=== PATIENT | female | born 1955 | race Caucasian/White ===

== ENCOUNTER → 2016-12-08 | Outpatient (CLI) | payer MEDICARE, OTHER ==
--- NOTE | 2016-12-08 08:59 | RAD ---
EXAM: DIGITAL SCREEN BILAT W/CAD. HISTORY: Screening. COMPARISON: 11/07/2015 and 10/29/2014. FINDINGS: Digital mammography was performed. Computer-aided detection (CAD) was utilized. The breast parenchyma is primarily fatty (tissue density A). No dominant suspicious mass, suspicious microcalcifications, or architectural distortion is identified. IMPRESSION: No mammographic evidence of malignancy. BI-RADS CATEGORY: 1 NEGATIVE RECOMMENDED FOLLOW-UP: 12M 12 MONTH FOLLOW-UP PQRS compliance statement: Patient information was entered into a reminder system with a target due date for the next mammogram. Mammography is a sensitive method for finding small breast cancers, but it does not detect them all and is not a substitute for careful clinical examination. A negative mammogram does not negate a clinically suspicious finding and should not result in delay in biopsying a clinically suspicious abnormality. "Our facility is accredited by the [employer] Mammography Program."
== END | disposition home or self-care (01) ==
LOC: MAMMO 08:27
PROVIDERS: ATTEND Family Medicine
DX: Z12.31 Encounter for screening mammogram for malignant neoplasm of breast (principal)
CPT/HCPCS: G0202; 77067

== ENCOUNTER 2017-01-09 18:28 | Emergency (ER) | payer MEDICARE, OTHER ==
[~2017-01-09] VITALS: Ht 162.6 cm; Wt 104.3 kg
--- NOTE | 2017-01-09 20:55 | PHYS DOC ---
Past Medical History Past Medical History: Diabetes-Type II, High Cholesterol, Hypertension Additional Past Medical Histor: MD, Guozmdy-Jbmve-Ljjny disorder, "valve problem" Past Surgical History: Appendectomy, Hysterectomy, Knee Replacement Additional Past Surgical Histo: right knee, carpal tunnel Alcohol Use: None Drug Use: None Adult General Chief Complaint Chief Complaint: MECHANICAL FALL HPI HPI Patient is a 61 year old female who presents with complaint of left foot and ankle pain. Patient states that she was walking down steps yesterday and lost her footing, causing her to fall back in her left foot becoming pinned back under her. Patient states that she did not hit her head or lose consciousness as a result of the fall. The fall took place at approximately 10:30 PM last night. Patient states that she has been ambulating with use of a cane. Patient states that she is having worsening pain to her left ankle and foot and states that she has had difficulty lifting her foot up since the fall. Patient rates pain currently 6 out of 10. Patient has not taken any medications to help with symptoms. Patient states that she has worsening pain when she tries to lift her foot. Review of Systems Review of Systems Constitutional: Denies fever or chills [] Eyes: Denies change in visual acuity, redness, or eye pain [] HENT: Denies nasal congestion or sore throat [] Musculoskeletal: Left ankle and foot pain with swelling, bruising [] Integument: Denies rash or skin lesions [] Neurologic: Denies headache, focal weakness or sensory changes [] Allergies Allergies Allergies Coded Allergies Type Severity Reaction Last Updated Verified adhesive Allergy Intermediate 01/09/17 Yes morphine Adverse Reaction Intermediate hallucination 01/09/17 Yes Physical Exam Physical Exam Constitutional: Alert, afebrile, no acute distress. [] HENT: Normocephalic, atraumatic, bilateral external ears normal, oropharynx moist, no oral exudates, nose normal. [] Eyes: PERRLA, EOMI, conjunctiva normal, no discharge. [] Extremities: Mild to moderate soft tissue swelling along left lateral malleolus , tenderness palpation over left lateral malleolus and on left heel, range of motion limited secondary to pain. [] Neurologic: Alert and oriented X 3, normal motor function, normal sensory function, no focal deficits noted. [] Current Patient Data Vital Signs Vital Signs Date Time Temp Pulse Resp B/P (MAP) Pulse Ox O2 Delivery O2 Flow Rate FiO2 01/09/17 19:45 98.6 87 18 96 Room Air 98.6 EKG EKG Not performed [] Radiology/Procedures Radiology/Procedures 3 view left ankle x-rays interpreted by me: No fractures, normal alignment, mild to moderate soft tissue swelling 3 view right foot x-rays interpreted by me: No fractures, normal alignment, no soft tissue swelling [] Course & Med Decision Making Course & Med Decision Making Pertinent Labs and Imaging studies reviewed. (See chart for details) The patient was placed in an Inocencio wrap and air cast by the emergency department nurse. My evaluation post application showed normal capillary refill in all 5 digits and normal sensation. Advised use of cane or a roller walker to assist with ambulation at home. Patient states that she has naproxen at home to use for pain. Advised elevation and cryotherapy for additional treatment. Advised follow-up in 3-5 days a primary doctor and referred to Dr. Graves of orthopedic surgery for follow-up in one to 2 weeks if symptoms are not improving. Recommended return to the emergency department for any worsening symptoms. Patient voiced understanding and in agreement with treatment plan. Dragon Disclaimer Dragon Disclaimer This electronic medical record was generated, in whole or in part, using a voice recognition dictation system. Departure Departure Impression: Primary Impression: Ankle sprain Additional Impression: Foot contusion Disposition: 01 HOME, SELF-CARE Condition: IMPROVED Referrals: EMILIANO BEVERLY MD (PCP) MARGARET GRAVES MD Patient Instructions: Ankle Sprain, Foot Contusion Additional Instructions: Follow-up with your primary doctor in the next 3-5 days and follow-up with Dr. Graves of orthopedic surgery in 1-2 weeks. Return to emergency department for any worsening symptoms. Problem Qualifiers Primary Impression: Ankle sprain Encounter type: initial encounter Involved ligament of ankle: unspecified ligament Laterality: left Qualified Codes: S93.402A - Sprain of unspecified ligament of left ankle, initial encounter Additional Impression: Foot contusion Encounter type: initial encounter Laterality: left Qualified Codes: S90.32XA - Contusion of left foot, initial encounter LESA MARC MD January 09, 2017 20:55
[2017-01-09 21:30] VITALS: BP 132/73
--- NOTE | 2017-01-10 07:01 | RAD ---
Indication: Left foot and ankle injury. Time of exam 2103 hours. 3 views of the left ankle were obtained. Moderate soft tissue swelling is present. There is some questionable mild widening of the ankle mortise posteriorly on the lateral view. No fracture is seen. No definite dislocation is identified. However, the talus appears to be slightly anteriorly subluxed in relation to the articular surface of the distal tibia. There is a large plantar calcaneal spur. Impression: Soft tissue swelling and questionable mild anterior subluxation of the talus in relation to the distal tibia. No fracture is seen.
--- NOTE | 2017-01-10 07:02 | RAD ---
Indication: Left foot injury. Time of exam 2103 hours. The metatarsals are intact. The phalanges are intact. Midfoot and hindfoot are unremarkable apart from a large plantar calcaneal spur. Tibiotalar alignment appears appropriate on the lateral view of the foot in comparison to the ankle radiograph. Impression: No acute abnormality is detected.
== END 2017-01-09 21:45 | disposition home or self-care (01) ==
LOC: ER 19:14
DX: S93.402A Sprain of unspecified ligament of left ankle, initial encounter (principal); S90.32XA Contusion of left foot, initial encounter; E11.9 Type 2 diabetes mellitus without complications; E78.00 Pure hypercholesterolemia, unspecified; I10 Essential (primary) hypertension; Z88.5 Allergy status to narcotic agent; Z91.048 Other nonmedicinal substance allergy status; W10.9XXA Fall (on) (from) unspecified stairs and steps, initial encounter; Y93.89 Activity, other specified; Y92.89 Other specified places as the place of occurrence of the external cause; Y99.8 Other external cause status
CPT/HCPCS: 73610; 73630; 99284

== ENCOUNTER → 2017-12-09 | Outpatient (CLI) | payer MEDICARE, OTHER | END | disposition home or self-care (01) | LOC: MAMMO 08:08 | DX: Z12.31 Encounter for screening mammogram for malignant neoplasm of breast (principal) | CPT/HCPCS: 77063; 77067 ==

== ENCOUNTER → 2018-10-26 | Outpatient (CLI) | payer MEDICARE, OTHER ==
--- NOTE | 2018-10-26 12:14 | RAD ---
Bilateral lower extremity venous ultrasound, 10/26/2018: History: Leg swelling and pain, left greater than right Duplex evaluation of the deep veins in the lower extremities was performed including grayscale, color-flow and spectral Doppler analysis. The right common femoral, superficial femoral and popliteal veins are patent. Patent posterior tibial and peroneal veins are present in the right calf. On the left there is occlusive thrombus in the left superficial femoral and popliteal veins. There is extension of a small nonocclusive thrombus into the left common femoral vein. Nonocclusive thrombi are noted in the posterior tibial and peroneal veins in the left calf. IMPRESSION: 1. No evidence of deep vein thrombosis in the right lower extremity. 2. Extensive deep vein thrombosis in the left lower extremity as described above. Note: The findings were given to this patient's provider at the time of the exam by the rad technologist. Electronically signed by: Alfonso Forbes MD (10/26/2018 12:11 PM) [facility]
--- NOTE | 2018-10-26 15:17 | RAD ---
Bilateral lower extremity venous insufficiency ultrasound exam, 10/26/2018: HISTORY: Leg swelling and pain Duplex evaluation of the saphenous veins in both lower extremities was performed including grayscale, color-flow and spectral Doppler analysis. The right greater saphenous vein is patent and shows no evidence of reflux. An anterior accessory saphenous vein is identified without significant reflux. There is reflux at the left saphenofemoral junction. The greater saphenous vein measures 9.2 mm at that level and demonstrates a reflux time of 1.7 seconds. Significant reflux was not identified in the remainder of the greater saphenous vein in the left thigh or left lower leg. There is an anterior sensory saphenous vein on the left which does not demonstrate significant reflux. The lesser saphenous veins in both calves are patent and do not demonstrate significant reflux. IMPRESSION: Reflux was identified in the left greater saphenous vein at the saphenofemoral junction as described above. Electronically signed by: Alfonso Forbes MD (10/26/2018 3:14 PM) [facility]
--- NOTE | 2018-10-26 16:29 | CARD ---
MR#: [id number] Date of Study: 10/26/2018 Ordering Physician: MICHAELA WRIGHT, Referring Physician: MICHAELA WRIGHT, Tech: Phyllis Sarmiento APPROVED REPORT EXAM: Two-dimensional and M-mode echocardiogram with Doppler and color Doppler. Other Information Quality : AverageHR: 66bpm INDICATION Murmur 2D DIMENSIONS RVDd3.2 (2.9-3.5cm)Left Atrium(2D)3.2 (1.6-4.0cm) IVSd1.0 (0.7-1.1cm)Aortic Root(2D)3.0 (2.0-3.7cm) LVDd4.7 (3.9-5.9cm)LVOT Diameter2.2 (1.8-2.4cm) PWd1.0 (0.7-1.1cm)LVDs3.0 (2.5-4.0cm) FS (%) 37.0 %SV69.7 ml Aortic Valve AoV Peak Elijah.189.0cm/sAoV VTI35.8cm AO Peak GR.14.3mmHgLVOT Peak Elijah.122.5cm/s LVOT VTI 24.24cmAO Mean GR.6mmHg SELENE (VMAX)1.46uc6BYO (VTI)2.56cm2 AI P 1/2 Vgpv127sm Mitral Valve MV E Ddmdgjpy03.0cm/sMV DECEL JKFA075sr MV A Qqkbumam33.4cm/sMV KNU385ul E/A Ratio0.7MVA (PHT)2.10cm2 TDI E/Lateral E'5.9E/Medial E'7.6 Pulmonary Valve PV Peak Gvqlucix299.8cm/sPV Peak Grad.12mmHg Tricuspid Valve TR P. Xdweyijy494zi/sRAP WGQILJYT2yvXs TR Peak Gr.59wiEbXXZJ69ucWi Pulmonary Vein S1 Guyrdinu72.6cm/sD2 Dfnocbsa33.6cm/s PVa siercino927ypnd LEFT VENTRICLE The left ventricle is normal size. There is normal left ventricular wall thickness. The left ventricu lar systolic function is normal and the ejection fraction is within normal range. The Ejection Fracti on is 50-55%. There is normal LV segmental wall motion. Transmitral Doppler flow pattern is Grade I-a bnormal relaxation pattern. RIGHT VENTRICLE The right ventricle is borderline dilated. There is normal right ventricular wall thickness. The righ t ventricular systolic function is normal. ATRIA The left atrium size is normal. The right atrium size is normal. The interatrial septum is intact wit h no evidence for an atrial septal defect or patent foramen ovale as noted on 2-D or Doppler imaging. AORTIC VALVE The aortic valve is thickened but opens well. Doppler and Color Flow revealed mild aortic regurgitati on. There is no significant aortic valvular stenosis. MITRAL VALVE The mitral valve is normal in structure and function. There is no evidence of mitral valve prolapse. There is no mitral valve stenosis. Doppler and Color-flow revealed trace mitral regurgitation. TRICUSPID VALVE The tricuspid valve is normal in structure and function. Doppler and Color Flow revealed trace tricus pid regurgitation. There is no tricuspid valve stenosis. PULMONIC VALVE The pulmonic valve is not well visualized. Doppler and Color Flow revealed trace pulmonic valvular re gurgitation. GREAT VESSELS The aortic root is normal in size. The IVC is normal in size and collapses >50% with inspiration. PERICARDIAL EFFUSION There is no evidence of significant pericardial effusion. Critical Notification Critical Value: No <Conclusion> The left ventricle is normal size. The left ventricular systolic function is normal and the ejection fraction is within normal range. The Ejection Fraction is 50-55%. There is no significant aortic valvular stenosis. Doppler and Color Flow revealed mild aortic regurgitation. Doppler and Color-flow revealed trace mitral regurgitation. Doppler and Color Flow revealed trace tricuspid regurgitation. Signed by : Michaela Wright MD Electronically Approved : 10/26/2018 16:29:36
== END | disposition home or self-care (01) ==
LOC: ECHO 07:58
PROVIDERS: ATTEND Internal Medicine Cardiovascular Disease
DX: I82.412 Acute embolism and thrombosis of left femoral vein (principal); I82.432 Acute embolism and thrombosis of left popliteal vein; I35.1 Nonrheumatic aortic (valve) insufficiency; M79.604 Pain in right leg; R22.41 Localized swelling, mass and lump, right lower limb
CPT/HCPCS: 93306; 93970

== ENCOUNTER → 2018-12-12 | Outpatient (CLI) | payer MEDICARE ==
--- NOTE | 2018-12-12 14:32 | RAD ---
DATE: 12/12/2018 EXAM: MAMMO JAY JAY SCREENING BILATERAL HISTORY: Screening evaluation COMPARISON: 12/09/2017, 12/08/2016 mammographic exams This study was interpreted with the benefit of Computerized Aided Detection (CAD). Breast Density: FATTY The breast parenchyma is primarily fatty replaced. Breast parenchyma level density A. FINDINGS: No suspicious masses, calcification, or distortion. IMPRESSION: No suspicious finding. BI-RADS CATEGORY: 1 NEGATIVE RECOMMENDED FOLLOW-UP: 12M 12 MONTH FOLLOW-UP PQRS compliance statement: Patient information was entered into a reminder system with a target due date in one year for the next mammogram. Mammography is a sensitive method for finding small breast cancers, but it does not detect them all and is not a substitute for careful clinical examination. A negative mammogram does not negate a clinically suspicious finding and should not result in delay in biopsying a clinically suspicious abnormality. "Our facility is accredited by the [employer] Mammography Program."
== END | disposition home or self-care (01) ==
LOC: MAMMO 07:52
PROVIDERS: ATTEND Family Medicine
DX: Z12.31 Encounter for screening mammogram for malignant neoplasm of breast (principal)
CPT/HCPCS: 77063; 77067

== ENCOUNTER → 2019-05-08 | Outpatient (CLI) | payer MEDICARE ==
--- NOTE | 2019-05-10 13:07 | RAD ---
MR#: [id number] Date of Study: 05/08/2019 Ordering Physician: IMCHAELA BENITEZ, Referring Physician: MICHAELA BENITEZ, Tech: Domenic Land, JOSEPH, RDMS, RVT, RDCS, RTR APPROVED REPORT Patient Location: OUT-PATIENT Indications Rest Pain:Bilaterally VELOCITY AND DOPPLER WAVEFORM ANALYSIS RIGHT cm/secWaveformSeverity LEFT cm/secWaveform Severity dCFA 184.0TriphasicdCFA 176.0Triphasic Prof Fem Art. 93.0TriphasicProf Fem Art. 80.0Triphasic Fem Art Prox. 125.0TriphasicFem Art Prox. 128.0Triphasic Fem Art Mid. 112.0TriphasicFem Art Mid. 116.0Triphasic Fem Art Dist. 104.0TriphasicFem Art Dist. 87.0Triphasic Pop Art(Fossa) 45.0TriphasicPop Art(AK) 51.0Triphasic GARAGE MANAGER Prox. 72.0BiphasicPTA Prox. 76.0Biphasic GARAGE MANAGER Dist. 78.0BiphasicPTA Dist. 76.0Biphasic Per Art Mid. 74.0BiphasicPer Art Mid. HILARY Prox. 84.0BiphasicATA Prox. 63.0Biphasic DPA 29BiphasicDPA 40Biphasic Findings Grayscale images of the lower extremity arterial vessels reveal mild diffuse disease. Spectral waveforms are mostly triphasic and biphasic throughout the lower extremity arterial course. The ankle vessels demonstrate moderate diffuse disease with monophasic waveforms in velocity suggesti ve of diffuse disease. There is three-vessel runoff on the right side and two-vessel runoff on the left side. No focal above -knee disease is identified bilaterally. Critical Notification Critical Value: No <Conclusion> 1. No significant large vessel disease noted in the bilateral lower extremity arterial vessels. 2. Likely small vessel disease of the level of the ankle and below. Signed by : Jose G Crowder, Electronically Approved : 05/08/2019 17:01:00
--- NOTE | 2019-05-10 13:07 | RAD ---
MR#: [id number] Date of Study: 05/08/2019 Ordering Physician: MICHAELA BENITEZ, Referring Physician: MICHAELA BENITEZ, Tech: Domenic Land MBA, RDMS, RVT, RDCS, RTR APPROVED REPORT Bilateral Lower Extremity Venous Study for DVT Patient Location: OUT-PATIENT Indications Lower Extremity Pain: Bilateral f/u lt leg dvt Vein Imaging (Right) CFV (R): Compressible SFJ (R): Compressible FEM (R): Compressible POP (R): Compressible DFV (R): Spontaneous PTV (R): Spontaneous GSV (R): Spontaneous Peroneals (R): Spontaneous Vein Imaging (Left) CFV (L): Compressible SFJ (L): Compressible FEM (L): Compressible POP (L): Compressible DFV (L): Compressible PTV (L): Spontaneous GSV (L): Spontaneous Peroneals (L): Spontaneous Doppler Evaluation (Right) CFV (R): Spontaneous POP (R):Spontaneous Doppler Evaluation (Left) CFV (L):Spontaneous POP (L):Spontaneous Findings Technically difficult study Grossly no above knee DVT noted. Grossly normal respiratory variation noted. The below knee vessels are not well visualized Critical Notification Critical Value: No <Conclusion> Technically difficult study. No clear above knee disease noted. Signed by : Jose G Crowder, Electronically Approved : 05/08/2019 16:45:37
== END | disposition home or self-care (01) ==
LOC: US 14:40
PROVIDERS: ATTEND Internal Medicine Cardiovascular Disease
DX: I82.403 Acute embolism and thrombosis of unspecified deep veins of lower extremity, bilateral (principal); I73.9 Peripheral vascular disease, unspecified; M79.604 Pain in right leg; M79.605 Pain in left leg
CPT/HCPCS: 93925; 93970

== ENCOUNTER → 2020-01-24 | Outpatient (CLI) | payer MEDICARE ==
--- NOTE | 2020-01-24 11:08 | RAD ---
MR#: [id number] Date of Study: 01/24/2020 Ordering Physician: MICHAELA BENITEZ, Referring Physician: MICHAELA BENITEZ, Tech: Phyllis Vance, KARLIE, RVT, RTR APPROVED REPORT Bilateral Lower Extremity Venous Study for DVT Patient Location: OUT-PATIENT Indications Lower Extremity Edema: Bilateral Findings The bilateral lower extremity deep veins were evaluated for thrombus with color Doppler, spectral and grayscale images. On the right the grayscale images of the common femoral, superficial femoral and popliteal veins do n ot demonstrate any evidence of thrombus and these veins appear to be compressible. The below-knee vei ns were not well visualized but grossly appear to be compressible. Spectral imaging and color Doppler do not reveal any evidence of obstruction to flow with normal respirophasic variation above the knee . Below the knee there is spontaneous flow noted. On the left, the grayscale images of the common femoral, superficial femoral and popliteal veins do n ot demonstrate any evidence of thrombus and these veins appear to be compressible. The below-knee vei ns again were not well visualized but grossly appear to be compressible. Spectral imaging and color D oppler do not reveal any evidence of obstruction to flow with normal respirophasic variation above th e knee. The below-knee veins demonstrate spontaneous flow. Critical Notification Critical Value: No <Conclusion> 1. No evidence of BLE DVT. Signed by : Jose G Crowder, Electronically Approved : 01/24/2020 11:07:38
== END | disposition home or self-care (01) ==
LOC: US 09:35
PROVIDERS: ATTEND Internal Medicine Cardiovascular Disease
DX: M79.89 Other specified soft tissue disorders (principal)
CPT/HCPCS: 93970

== ENCOUNTER → 2020-01-31 | Outpatient (CLI) | payer MEDICARE ==
--- NOTE | 2020-02-01 08:21 | RAD ---
INDICATION: 64 years of age asymptomatic female patient presents for screening mammography. TECHNIQUE: Full field craniocaudal and mediolateral oblique images of both breasts were obtained using digital technique with tomosynthesis and also analyzed with computer-aided detection software. COMPARISON: Prior mammographic imaging dating back to 12/09/2017. BREAST COMPOSITION: Category B: There are scattered fibroglandular densities. FINDINGS: The parenchymal pattern appears stable. Benign calcifications are present. No suspicious masses, microcalcifications or architectural distortion is present to suggest malignancy in either breast. The visualized axillae are unremarkable. IMPRESSION: No mammographic evidence of malignancy. RECOMMENDATION: Annual screening mammography is recommended, unless clinically indicated sooner based on symptoms or change in physical exam. BIRADS 2: BENIGN Electronically signed by: Williams Delcid MD (02/01/2020 8:18 AM) [place] [id number]
== END | disposition home or self-care (01) ==
LOC: MAMMO 13:07
PROVIDERS: ATTEND Family Medicine
DX: Z12.31 Encounter for screening mammogram for malignant neoplasm of breast (principal); R92.1 Mammographic calcification found on diagnostic imaging of breast
CPT/HCPCS: 77063; 77067